=== PATIENT | female | born 1985 | race Two or more races ===

== ENCOUNTER 2022-07-02 22:10 | Emergency (ER) | payer OTHER ==
[~2022-07-02] VITALS: Ht 154.9 cm; Wt 61.7 kg
[2022-07-02] MEDS ORDERED: AMBIEN5 MG (22:32)
== END 2022-07-03 10:10 | disposition home or self-care (01) ==
LOC: ER 22:10
DX: R10.31 Right lower quadrant pain (principal); N83.202 Unspecified ovarian cyst, left side